=== PATIENT | male | born 1950 ===

== ENCOUNTER 2018-06-02 10:09 | Emergency (ER) | payer MEDICARE ==
[2018-06-02 10:09] VITALS: BMI 25.7
[2018-06-02 10:13] VITALS: TEMP 98.1
--- NOTE | 2018-06-02 10:31 | C.PDOC ---
History Of Present Illness 67 y/o male with PMHx of hypertension presents to the ED complaining of left foot pain for 1 week. Patient states it initially started as an itch around his toes, then developed into fissures and peeling of the skin. The area has become increasingly painful. Patient reports using an anti-fungal spray without improvement. He is ambulatory in the ED. Denies any fever, chills, numbness, or tingling. Time Seen by Provider: 06/02/18 10:22 Chief Complaint (Nursing): Lower Extremity Problem/Injury History Per: Patient History/Exam Limitations: no limitations Onset/Duration Of Symptoms: Days Current Symptoms Are (Timing): Still Present Past Medical History Reviewed: Historical Data, Nursing Documentation, Vital Signs Vital Signs: Last Vital Signs Temp 98.1 F 06/02/18 10:11 Pulse 79 06/02/18 10:11 Resp 15 06/02/18 10:11 BP 187/91 H 06/02/18 10:11 Pulse Ox 97 06/02/18 10:32 - Medical History PMH: HTN, Hypercholesterolemia Family History: States: Unknown Family Hx - Social History Hx Tobacco Use: No Hx Alcohol Use: Yes (social) Hx Substance Use: No - Immunization History Hx Tetanus Toxoid Vaccination: No Hx Influenza Vaccination: Yes Hx Pneumococcal Vaccination: Yes Review Of Systems Except As Marked, All Systems Reviewed And Found Negative. Constitutional: Negative for: Fever, Chills Gastrointestinal: Negative for: Nausea, Vomiting, Abdominal Pain Musculoskeletal: Positive for: Foot Pain (left) Skin: Positive for: Rash (to bottom of left foot) Neurological: Negative for: Weakness, Numbness, Incoordination Physical Exam - Physical Exam Appears: Non-toxic, No Acute Distress Skin: Warm, Dry Head: Atraumatic, Normacephalic Eye(s): bilateral: Normal Inspection, PERRL, EOMI Oral Mucosa: Moist Neck: Normal ROM, Supple Chest: Symmetrical Extremity: Normal ROM, No Tenderness, Capillary Refill (less than 2 sec), No Deformity, No Swelling, Other (Left foot with tight shiny skin with fissures to plantar surface and peeling) Pulses: Left Dorsalis Pedis: Normal, Right Dorsalis Pedis: Normal Neurological/Psych: Oriented x3, Normal Speech Gait: Steady ED Course And Treatment O2 Sat by Pulse Oximetry: 97 (RA) Pulse Ox Interpretation: Normal Medical Decision Making Medical Decision Making: Impression: Fungal infection Initial Plan: Patient is stable for discharge home. Counseled regarding diagnosis and treatment plan. Provided prescriptions for Mupirocin 2% ointment and Lotrimin cream. Disposition Counseled Patient/Family Regarding: Diagnosis, Need For Followup, Rx Given - Disposition Disposition: HOME/ ROUTINE Disposition Time: 10:28 Condition: STABLE Prescriptions: Butenafine HCl [Lotrimin Ultra] 30 gm TP BID #1 tube Mupirocin 2% Ointment [Bactroban Ointment] 1 appl TP BID #1 tube Instructions: Athlete's Foot (DC) Forms: [facility] ([place]), General Discharge Instructions - POA Present On Arrival: None - Clinical Impression Clinical Impression: Fungal infection of foot - Scribe Statement The provider has reviewed the documentation as recorded by the Scribe (Carmen Somers) Provider Attestation: All medical record entries made by the Scribe were at my direction and personally dictated by me. I have reviewed the chart and agree that the record accurately reflects my personal performance of the history, physical exam, medical decision making, and the department course for this patient. I have also personally directed, reviewed, and agree with the discharge instructions and disposition.
[2018-06-02 10:48] VITALS: BP 151/74; PULSE 70; RESP 16; O2SAT 98
== END 2018-06-02 10:50 | disposition home or self-care (01) ==
LOC: C.ER 10:09
DX: B36.9 Superficial mycosis, unspecified (principal)